=== PATIENT | female | born 1955 | race American Indian/Alaskan Native ===

== ENCOUNTER 2016-07-15 19:58 | Emergency (ER) | payer BC, OTHER ==
[2016-07-15 20:07] VITALS: BP 149/71
[2016-07-15] MEDS ORDERED: Albuterol/Ipratropium 3.0-0.5 MG/3 ML Neb Soln NEB ONE (20:15)
[2016-07-15] MEDS ORDERED: Codeine/Promethazine 10-6.25 MG/5 ML Syrup 5 ML UD Cup PO ONE (20:15)
[2016-07-15] MEDS ORDERED: Azithromycin 250 MG Tab PO ONE (20:17)
--- NOTE | 2016-07-15 20:24 | EDM.PDOC ---
{null, ED HPI GENERAL MEDICAL PROBLEM - General Chief Complaint: Respiratory Problem Stated Complaint: cough [id number] Time Seen by Provider: 07/15/16 20:21 Source of Information: Reports: Patient History Limitations: Reports: No Limitations - History of Present Illness INITIAL COMMENTS - FREE TEXT/NARRATIVE: few days h/o progressive Sx. - Related Data Allergies Allergy/AdvReac Type Severity Reaction Status Date / Time No Known Allergies Allergy Verified 04/14/15 05:56 Home Meds: Home Meds Multivitamin [Multivitamins] 1 tab PO DAILY 04/13/15 [History] Past Medical History HEENT History: Reports: None Cardiovascular History: Reports: None Respiratory History: Reports: None Gastrointestinal History: Reports: Hemorrhoids Genitourinary History: Reports: None [employer] History: Reports: Musculoskeletal History: Reports: Arthritis Neurological History: Reports: None Psychiatric History: Reports: None Endocrine/Metabolic History: Reports: None Hematologic History: Reports: None Immunologic History: Reports: None Oncologic (Cancer) History: Reports: None Dermatologic History: Reports: None - Past Surgical History HEENT Surgical History: Reports: None Cardiovascular Surgical History: Reports: None GI Surgical History: Reports: Colonoscopy, Other (See Below) Social & Family History - Tobacco Use Smoking Status *Q: Never Smoker Used Tobacco, but Quit: Yes Second Hand Smoke Exposure: Yes - Caffeine Use Caffeine Use: Reports: Coffee, Soda, Tea - Recreational Drug Use Recreational Drug Use: No ED ROS GENERAL - Review of Systems Review Of Systems: ROS reveals no pertinent complaints other than HPI. ED EXAM, GENERAL - Physical Exam Exam: See Below Exam Limited By: No Limitations General Appearance: Alert, WD/WN, Mild Distress, Other (episodic cough spasms) Ears: Hearing Grossly Normal Throat/Mouth: Normal Voice, No Airway Compromise Head: Atraumatic Neck: Non-Tender, Full Range of Motion Respiratory/Chest: No Respiratory Distress, No Accessory Muscle Use, Rhonchi, Wheezing Cardiovascular: Regular Rate, Rhythm GI/Abdominal: Soft, Non-Tender Neurological: Alert, Oriented, Normal Cognition, Normal Gait, No Motor/Sensory Deficits Psychiatric: Normal Affect, Normal Mood Skin Exam: Warm, Dry Lymphatic: No Adenopathy Course - Vital Signs Last Recorded V/S: Last Vital Signs Temp 36.1 C 07/15/16 20:04 Pulse 55 L 07/15/16 20:04 Resp 16 07/15/16 20:04 BP 149/71 H 07/15/16 20:04 Pulse Ox 98 07/15/16 20:04 - Orders/Labs/Meds Orders: Active Orders 24 hr Category Date Time Status RT Aerosol Therapy [RC] ASDIRECTED Care 07/15/16 20:15 Active Meds: Medications Discontinued Medications Generic Name Dose Route Start Last Admin Trade Name Freq PRN Reason Stop Dose Admin Albuterol/Ipratropium 3 ml 07/15/16 20:15 Duoneb 3.0-0.5 Mg/3 Ml NEB 07/15/16 20:16 ONETIME ONE Azithromycin 500 mg 07/15/16 20:17 Zithromax PO 07/15/16 20:18 ONETIME ONE Promethazine HCl/Codeine 5 ml 07/15/16 20:15 Phenergan With Codeine PO 07/15/16 20:16 ONETIME ONE Departure - Departure Time of Disposition: 20:22 Disposition: Home, Self-Care 01 Condition: good Clinical Impression: Acute bronchiolitis with bronchospasm - Discharge Information Instructions: Bronchospasm, Adult, [id number] Forms: ED Department Discharge Additional Instructions: 1) rest 2) don't sleep flat at night 3) drink lots of liquids 4) follow up at clinic or recheck as needed rx given: z-rasta phenergan codeine syrup qid prn 4 oz - My Orders Last 24 Hours: My Active Orders 07/15/16 20:15 RT Aerosol Therapy [RC] ASDIRECTED - Assessment/Plan Last 24 Hours: My Active Orders 07/15/16 20:15 RT Aerosol Therapy [RC] ASDIRECTED }
== END 2016-07-15 20:37 | disposition home or self-care (01) ==
LOC: DL.ED 19:58
DX: J21.9 Acute bronchiolitis, unspecified (principal); M19.90 Unspecified osteoarthritis, unspecified site; Z79.899 Other long term (current) drug therapy
CPT/HCPCS: 94640; 99283; A9270

== ENCOUNTER 2022-02-06 10:37 | Emergency (ER) | payer BC, OTHER ==
[2022-02-06] MEDS ORDERED: Benzonatate 100 MG Cap PO ONE (10:38)
[2022-02-06 12:00] LABS: CORONAVIRUS COVID-19 NAA NEGATIVE (NEGATIVE); RESPIRATORY SYNCYTIAL VIR NAA NEGATIVE (NEGATIVE)
[2022-02-06 12:06] VITALS: BP 161/82; PULSE 101
[2022-02-06] MEDS ORDERED: Lidocaine 2% Viscous Solution 15 ML UD PO ONE (12:21)
[2022-02-06] MEDS ORDERED: Codeine/Promethazine 10-6.25 MG/5 ML Syrup 5 ML UD Cup PO ONE (12:22)
[2022-02-06] MEDS ORDERED: Benzonatate 100 MG Cap ONE (12:27)
== END 2022-02-06 12:34 | disposition home or self-care (01) ==
LOC: DL.ED 10:37
DX: J10.1 Influenza due to other identified influenza virus with other respiratory manifestations (principal); Z88.8 Allergy status to other drugs, medicaments and biological substances; Z20.822 Contact with and (suspected) exposure to COVID-19
CPT/HCPCS: 0241U; 87081; 87430; 99284; A9270

== ENCOUNTER 2022-08-08 11:17 | Emergency (ER) | payer MEDICARE, BC, OTHER ==
[2022-08-08 11:38] VITALS: BP 153/70; PULSE 62
[2022-08-08] MEDS ORDERED: Benzonatate 100 MG Cap PO ONE (11:46)
[2022-08-08] MEDS ORDERED: Albuterol/Ipratropium 3.0-0.5 MG/3 ML Neb Soln NEB ONE (11:46)
== END 2022-08-08 12:23 | disposition home or self-care (01) ==
LOC: DL.ED 11:17
DX: J20.9 Acute bronchitis, unspecified (principal); Z88.8 Allergy status to other drugs, medicaments and biological substances
CPT/HCPCS: 71046; 99283; 99285; A9270-GY; J7620-GY

== ENCOUNTER 2022-11-02 08:56 | Emergency (ER) | payer BC, OTHER ==
[2022-11-02 09:18] VITALS: BP 155/76; PULSE 77
== END 2022-11-02 10:06 | disposition home or self-care (01) ==
LOC: DL.ED 08:56
DX: U07.1 COVID-19 (principal); J10.1 Influenza due to other identified influenza virus with other respiratory manifestations; Z88.0 Allergy status to penicillin; E20.9 Hypoparathyroidism, unspecified; Z79.899 Other long term (current) drug therapy
CPT/HCPCS: 87081; 87430; 87804; 99283; U0002